=== PATIENT | male | born 1960 | race Two or more races ===

== ENCOUNTER 2019-09-02 13:27 | Emergency (ER) | payer SELFPAY ==
[2019-09-02 13:47] VITALS: BP 179/92
--- NOTE | 2019-09-02 14:07 | PHYS DOC ---
Past History Past Medical History: Diabetes, Hypertension Past Surgical History: No Surgical History Smoking: Non-smoker Alcohol Use: Heavy Drug Use: None Adult General Chief Complaint Chief Complaint: COUGH HPI HPI Patient is a 58-year-old male presents complaining of cough and congestion for the past several days. Patient recently traveled to [place] from [facility]. He went by bus. There were people coughing around him on the bus. No fever. Nasal congestion is present. No worsening with laying down or sitting up. No chest pain or palpitations. No nausea or vomiting. No lower extremity swelling.[] Review of Systems Review of Systems Constitutional: Denies fever or chills [] Eyes: Denies change in visual acuity, redness, or eye pain [] HENT: Denies nasal congestion or sore throat [] Respiratory: See history of present illness[] Cardiovascular: No additional information not addressed in HPI [] GI: Denies abdominal pain, nausea, vomiting, bloody stools or diarrhea [] : Denies dysuria or hematuria [] Musculoskeletal: Denies back pain or joint pain [] Integument: Denies rash or skin lesions [] Neurologic: Denies headache, focal weakness or sensory changes [] Endocrine: Denies polyuria or polydipsia [] All other systems were reviewed and found to be within normal limits, except as documented in this note. Allergies Allergies Allergies Coded Allergies Type Severity Reaction Last Updated Verified No Known Drug Allergies 09/02/19 No Physical Exam Physical Exam Constitutional: Well developed, well nourished, no acute distress, non-toxic appearance. [] HENT: Normocephalic, atraumatic, bilateral external ears normal, oropharynx moist, no oral exudates, nose with clear drainage. [] Eyes: PERRLA, EOMI, conjunctiva normal, no discharge. [] Neck: Normal range of motion, no tenderness, supple, no stridor. [] Cardiovascular:Heart rate regular rhythm, no murmur [] Lungs & Thorax: Bilateral breath sounds clear to auscultation [] Abdomen: Bowel sounds normal, soft, no tenderness, no masses, no pulsatile masses. [] Skin: Warm, dry, no erythema, no rash. [] Back: No tenderness, no CVA tenderness. [] Extremities: No tenderness, no cyanosis, no clubbing, ROM intact, no edema. [] Neurologic: Alert and oriented X 3, normal motor function, normal sensory function, no focal deficits noted. [] Psychologic: Affect normal, judgement normal, mood normal. [] Current Patient Data Vital Signs Vital Signs Date Time Temp Pulse Resp B/P (MAP) Pulse Ox O2 Delivery O2 Flow Rate FiO2 09/02/19 13:47 99.0 106 24 99 Room Air EKG EKG [] Radiology/Procedures Radiology/Procedures PROCEDURE: CHEST PA & LATERAL Chest PA and lateral 09/02/2019. Reason for exam: Cough and congestion. No infiltrate or effusion is seen. Heart size and pulmonary vascularity appear normal. IMPRESSION: No acute disease. Electronically signed by: Boaz Daly Jr., MD (09/02/2019 2:23 PM) [facility] [place] Course & Med Decision Making Course & Med Decision Making Pertinent Labs and Imaging studies reviewed. (See chart for details) ED course: Patient arrived, was placed in bed, and tolerated exam well. He was transferred to and from radiology with any complications. After the return of the imaging findings, these were discussed with patient and his family who voiced understanding. All questions were answered. He was discharged in improved condition. Medical decision making: Patient appears to have an acute bronchitis. There is no evidence of pneumonia, pneumothorax, nor significant illness. No evidence of hypoxia.[] Dragon Disclaimer Dragon Disclaimer This electronic medical record was generated, in whole or in part, using a voice recognition dictation system. Departure Departure: Impression: Primary Impression: Acute bronchitis Disposition: 01 HOME, SELF-CARE Condition: IMPROVED Referrals: PCP,UNKNOWN (PCP) Patient Instructions: Acute Bronchitis Additional Instructions: Follow-up with your regular doctor in 2 days. If you do not have regular doctor, a list of local clinics will be provided for you. Wait 2 days before filling the prescription for doxycycline. Most bronchitis is due to a viral infection and all the antibiotics will not fixate a faster. If no improvement with symptomatic care, take the antibiotic doxycycline as directed. Return to the ER if worsening difficulty breathing or any other concerns. Scripts D-Methorphan Hb/Prometh Hcl (PROMETHAZINE-DM SYRUP) 118 Ml Syrup 5 ML PO PRN Q4HRS for CONGESTION, #120 ML Prov: BRIANA MONTEIRO DO 09/02/19 Doxycycline Hyclate (DOXYCYCLINE HYCLATE) 100 Mg Tablet 1 TAB PO BID for BRONCHITIS, #20 TAB Prov: BRIANA MONTEIRO DO 09/02/19 Albuterol Sulfate (VENTOLIN HFA INHALER) 18 Gm Hfa.aer.ad 2 PUFF IH PRN Q4HRS PRN for COUGH, #1 INHALER 0 Refills Prov: BRIANA MONTEIRO DO 09/02/19 Problem Qualifiers Primary Impression: Acute bronchitis Bronchitis organism: unspecified organism Qualified Codes: J20.9 - Acute bronchitis, unspecified BRIANA MONTEIRO DO Sep 02, 2019 14:07
--- NOTE | 2019-09-02 14:26 | RAD ---
Chest PA and lateral 09/02/2019. Reason for exam: Cough and congestion. No infiltrate or effusion is seen. Heart size and pulmonary vascularity appear normal. IMPRESSION: No acute disease. Electronically signed by: Boaz Daly Jr., MD (09/02/2019 2:23 PM) [facility] [place]
[2019-09-02] MEDS ORDERED: ALBU2.5V8 IH (14:45)
[2019-09-02] MEDS ORDERED: PROM118S9 PO (14:45)
[2019-09-02] MEDS ORDERED: DOXY100T PO (14:45)
== END 2019-09-02 14:47 | disposition home or self-care (01) ==
LOC: ER 13:27
DX: J20.9 Acute bronchitis, unspecified (principal); E11.9 Type 2 diabetes mellitus without complications; I10 Essential (primary) hypertension; F10.20 Alcohol dependence, uncomplicated; Y90.9 Presence of alcohol in blood, level not specified
CPT/HCPCS: 71046; 99284